=== PATIENT | female | born 2000 | race Caucasian/White ===

== ENCOUNTER 2022-07-20 10:45 | Emergency (ER) | payer OTHER, SELFPAY ==
[2022-07-20 10:56] VITALS: BP 116/74; PULSE 66; RESP 20; TEMP 36.6; O2SAT 98
--- NOTE | 2022-07-20 11:01 | ED.LOWEXIN ---
HPI - Extremity Injury (Lower) General Chief Complaint: Extremity Injury, Lower Stated Complaint: rt knee injury Time Seen by Provider: 07/20/22 11:16 Source: patient and RN notes reviewed Mode of arrival: ambulatory Limitations: no limitations History of Present Illness HPI Narrative: 21-year-old female presents concern for right knee pain. Reports she fell on Tuesday, twisting her ankle and landing on her knee. Reports she may have twisted the knee, she heard a crunching sound. Reports she has an abrasion on the knee. She reports pain at rest, worsening pain with weight-bearing and she is unable to fully flex the knee, reports it feels ?stuck?. She has been intermittently taking ibuprofen and trying to rest. MD complaint: knee injury Related Data Home Medications Medication Instructions Recorded Confirmed amoxicillin 500 mg tablet 500 mg PO DIRECTED 07/20/22 07/20/22 Allergies Allergy/AdvReac Type Severity Reaction Status Date / Time No Known Allergies Allergy Verified 07/20/22 11:11 Review of Systems Review of Systems: CONSTITUTIONAL: Denies malaise, chills, sweats, or fever. SKIN: Denies rash or itching, open skin, laceration, abrasion, redness, warmth, swelling. MUSCULOSKELETAL: Reports right knee pain, decreased range of motion NEUROLOGIC: Denies numbness, weakness All systems reviewed & are unremarkable except as noted in HPI and below PMFSH Comments At time of signature, agree with nursing past medical, surgical, social and family history. There is no relevant family history pertinent to the presenting complaint Exam Narrative: GENERAL: Well-appearing, well-nourished, and in no acute distress. HEAD: Normocephalic, atraumatic. EYES: PERRLA, conjunctivae clear NECK: Supple. CHEST: Speaks in full sentences. No respiratory distress. HEART: Regular rate and rhythm. Normal and equal peripheral pulses. EXTREMITIES: Right knee has normal strength and sensation, limited range of motion. Mild anterior edema, no ecchymosis. 5/5 strength with knee extension. Normal sensation with sensitivity to light touch and pain. No point tenderness. No no skin tenting, no devitalized tissue or atrophy, no trophic changes, no obvious deformity, alignment normal, nearby joints and structures intact. Distal pulses palpable and equal bilaterally, skin warm, dry, pink. Capillary refill less than 3 seconds. SKIN: Warm, dry, no rash. Scabbed abrasion on the anterior right knee NEURO: Alert and oriented x3. PSYCH: Normal mood and affect Course Course Emergency Course: Patient is aware of diagnosis, understands and agrees to treatment plan. Anticipatory guidance given. Patient agrees to follow-up as directed and is aware of reasons to seek care at the emergency department. Portions of this record may have been created with voice recognition software Level of Care: Express Care Visit Vital Signs Vital signs: Vital Signs Temperature 98 F 07/20/22 10:56 Pulse Rate 66 07/20/22 10:56 Respiratory Rate 20 07/20/22 10:56 Blood Pressure 116/74 07/20/22 10:56 Pulse Oximetry 98 07/20/22 10:56 Temperature 98 F 07/20/22 10:56 Pulse Rate 66 07/20/22 10:56 Respiratory Rate 20 07/20/22 10:56 Blood Pressure 116/74 07/20/22 10:56 Pulse Oximetry 98 07/20/22 10:56 Reviewed. MDM - Extremity Injury (Lower) MDM Narrative Medical decision making narrative: Patients injury and pain is consistent with musculoskeletal etiology. No signs of neurological or vascular compromise on exam. Compartments and tissues are soft without signs of compartment syndrome. Pain is felt appropriate for further evaluation on an outpatient basis. Imaging Data My impression: Images reviewed, interpreted by radiologist, agree, see report. Radiologist's impression: Right Knee Technique: AP, lateral, and sunrise views were obtained. Clinical History: Pain Findings: No fracture or dislocation is seen. Osseous alignment is
== END 2022-07-20 11:27 | disposition home or self-care (01) ==
PROVIDERS: Emergency Provider Nurse Practitioner; PCP Internal Medicine
DX: S83.91XA Sprain of unspecified site of right knee, initial encounter (principal); W19.XXXA Unspecified fall, initial encounter
CPT/HCPCS: 73562; 99213; G0463

== ENCOUNTER 2022-12-21 10:55 | Emergency (ER) | payer OTHER, SELFPAY ==
[2022-12-21 11:03] VITALS: BP 106/81; PULSE 76; RESP 16; TEMP 36.6; O2SAT 100
--- NOTE | 2022-12-21 11:09 | ED.GENADULT ---
HPI - General Adult General Chief complaint: Unspecified Stated complaint: Jaw locked Source: patient and RN notes reviewed Mode of arrival: ambulatory Limitations: no limitations History of Present Illness HPI narrative: Patient is a 22-year-old female who presents to the [facility] with right jaw pain. Patient states that the right side of her jaw has been locking all the time. It worsens when she opens her mouth wide. She reports a pulsating sensation on the right side of her jaw. States that this pain radiates to the head and down the neck. She denies trouble swallowing. Denies sore throat. Denies dental caries. Related Data Allergies Allergy/AdvReac Type Severity Reaction Status Date / Time No Known Allergies Allergy Verified 12/21/22 11:13 Review of Systems Review of Systems: CONSTITUTIONAL: Denies fever, chills, or sweats. EYES: Denies visual changes, redness, or discharge. ENT: Denies otalgia and sore throat. Reports jaw pain. CARDIOVASCULAR: Denies chest pain, palpitations, or edema. RESPIRATORY: Denies cough or dyspnea. GASTROINTESTINAL: Denies abdominal pain, nausea, vomiting, or diarrhea. GENITOURINARY: Denies dysuria or hematuria. SKIN: Denies rash or itching. MUSCULOSKELETAL: Denies back pain, joint pain, or myalgia. NEUROLOGIC: Denies headache, numbness, or weakness. Pertinent positives per HPI. PMFSH Comments At the time of my signature, I reviewed and agree with the nursing past medical, surgical, social, and family history. There is no relevant family history pertinent to the patient complaint. Exam Narrative: GENERAL: This is a well-nourished, well-developed patient, in no apparent distress. HEAD: normocephalic, atraumatic. EYES: Sclera clear/white. Vision is grossly intact. EARS: External ears normal. Hearing grossly intact. NOSE: External nose normal with no obvious nasal discharge, nares without redness, no rhinorrhea. THROAT: Mucous membranes moist, posterior pharynx clear. MOUTH: Tightness to right TMJ upon opening the mouth. NECK: Neck supple, non-tender without lymphadenopathy, masses or thyromegaly. CARDIOVASCULAR: Regular rate and rhythm without murmurs, gallops, or rubs. RESPIRATORY: Clear to auscultation. Breath sounds equal bilaterally. No wheezes, rales, or rhonchi. GASTROINTESTINAL: Abdomen soft, non-tender, nondistended. Bowel sounds are active. No hepato-splenomegaly, or palpable masses. No guarding. SKIN: warm, intact with no suspicious lesions or rash, good texture and turgor. NEURO: awake, alert, and oriented to person, place and time. There were no obvious focal neurologic abnormalities. Course Course Level of Care: Express Care Visit Vital Signs Vital signs: Vital Signs Temperature 97.9 F 12/21/22 11:03 Pulse Rate 76 12/21/22 11:03 Respiratory Rate 16 12/21/22 11:03 Blood Pressure 106/81 12/21/22 11:03 Pulse Oximetry 100 12/21/22 11:03 Temperature 97.9 F 12/21/22 11:03 Pulse Rate 76 12/21/22 11:03 Respiratory Rate 16 12/21/22 11:03 Blood Pressure 106/81 12/21/22 11:03 Pulse Oximetry 100 12/21/22 11:03 Reviewed Medical Decision Making MDM Narrative Medical decision making narrative: Advised to take medication as prescribed. Recommended follow-up with primary care physician. If pain persists, she may benefit from being referred to specialist. Differential Diagnosis Differential Diagnosis: TMJ, dental infection, dental caries, otitis media Vital Signs Vital Signs: Vital Signs Temperature 97.9 F 12/21/22 11:03 Pulse Rate 76 12/21/22 11:03 Respiratory Rate 16 12/21/22 11:03 Blood Pressure 106/81 12/21/22 11:03 Pulse Oximetry 100 12/21/22 11:03 Temperature 97.9 F 12/21/22 11:03 Pulse Rate 76 12/21/22 11:03 Respiratory Rate 16 12/21/22 11:03 Blood Pressure 106/81 12/21/22 11:03 Pulse Oximetry 100 12/21/22 11:03 Critical Care Time Critical Care Time Critical Ca
== END 2022-12-21 11:18 | disposition home or self-care (01) ==
PROVIDERS: Emergency Provider Nurse Practitioner
DX: M26.609 Unspecified temporomandibular joint disorder, unspecified side (principal)
CPT/HCPCS: 99213; G0463

== ENCOUNTER 2022-12-21 18:07 | Emergency (ER) | payer OTHER, SELFPAY ==
[2022-12-21 18:18] VITALS: BP 136/68; PULSE 153; RESP 18; TEMP 36.6; O2SAT 100
--- NOTE | 2022-12-21 18:18 | ECG_ITS ---
Measurements Intervals [place] Rate: 97 P: 76 ID: [id number] QRS: 79 QRSD: 89 T: 52 QT: 333 QTc: 424 Interpretive Statements SINUS RHYTHM WITH MARKED SINUS ARRHYTHMIA WITH SHORT ID INTERVAL NONSPECIFIC ST & T-WAVE ABNORMALITY- ANTEROLAT/INF LEADS BASELINE ARTIFACT- I, II, AVR, AVL, V3 BORDERLINE ECG NO PREVIOUS ECG AVAILABLE FOR COMPARISON Electronically Signed On 12-21-2022 19:58:06 CDT by Luis Alberto Schumacher D.O.
[2022-12-21 19:52] VITALS: BP 112/72; PULSE 82; RESP 20; O2SAT 99
[2022-12-21 22:06] VITALS: BP 116/72; PULSE 70; RESP 18; O2SAT 100
--- NOTE | 2022-12-21 22:55 | ED.GENADULT ---
HPI - General Adult General Chief complaint: Unspecified Stated complaint: jaw pain, headache Time Seen by Provider: 12/21/22 22:37 History of Present Illness HPI narrative: Patient 20-year-old female presents the emergency department with chief complaint of jaw pain. Patient reports that she has been having pain in her right jaw after her right lower wisdom tooth has been coming and patient states she was seen in urgent care and given a muscle relaxer and then started having nausea and vomiting afterwards. The patient reports she had spasms along the right side of her body that subsequently have improved patient states she was started on naproxen and cyclobenzaprine and reported that she started vomiting after she took the cyclobenzaprine. Patient states that currently she feels fine except some mild soreness in her TMJ joint. Related Data Allergies Allergy/AdvReac Type Severity Reaction Status Date / Time No Known Allergies Allergy Verified 12/21/22 22:06 Review of Systems Review of Systems: A 10 system review of systems was completed on the patient and is negative except for what is stated in the HPI. Nursing and ancillary documentation was reviewed. Exam Narrative: GENERAL: Well-appearing, well-nourished, and in no acute distress. HEAD: Normocephalic, atraumatic. EYES: PERRLA and EOMI. ENT: Nares clear, no rhinorrhea or epistaxis. Mucous membranes moist. Mild tenderness to palpation of the right TMJ joint no angioedema, no crepitance NECK: Supple. CHEST: Clear to auscultation. No respiratory distress. HEART: Regular rate and rhythm. No murmur heard. Normal peripheral pulses. ABDOMEN: Soft, nontender, nondistended, normal active bowel sounds. EXTREMITIES: Normal range of motion. No edema. SKIN: Warm, dry, no rash. NEURO: No focal deficits. Alert and oriented x3. PSYCH: Normal mood and affect. Course Vital Signs Vital signs: Vital Signs Temperature 36.6 C 12/21/22 18:18 Pulse Rate 153 H 12/21/22 18:18 Respiratory Rate 18 12/21/22 18:18 Blood Pressure 136/68 12/21/22 18:18 Pulse Oximetry 100 12/21/22 18:18 Oxygen Delivery Room Air 12/21/22 18:18 Temperature 36.6 C 12/21/22 18:18 Pulse Rate 70 12/21/22 22:06 Respiratory Rate 18 12/21/22 22:06 Blood Pressure 116/72 12/21/22 22:06 Pulse Oximetry 100 12/21/22 22:06 Oxygen Delivery Room Air 12/21/22 22:06 Medical Decision Making MDM Narrative Medical decision making narrative: Differential diagnosis includes medication intolerance, TMJ pain Given the patient had nausea and vomiting after taking the Flexeril the patient's antispasmodic will be changed to Norflex. The patient was instructed to follow-up with a dentist. Vital Signs Vital Signs: Vital Signs Temperature 36.6 C 12/21/22 18:18 Pulse Rate 153 H 12/21/22 18:18 Respiratory Rate 18 12/21/22 18:18 Blood Pressure 136/68 12/21/22 18:18 Pulse Oximetry 100 12/21/22 18:18 Oxygen Delivery Room Air 12/21/22 18:18 Temperature 36.6 C 12/21/22 18:18 Pulse Rate 70 12/21/22 22:06 Respiratory Rate 18 12/21/22 22:06 Blood Pressure 116/72 12/21/22 22:06 Pulse Oximetry 100 12/21/22 22:06 Oxygen Delivery Room Air 12/21/22 22:06 Discharge Plan Discharge Clinical Impression: TMJ (temporomandibular joint syndrome), Nausea & vomiting Patient Disposition: Home, Self-Care Condition: Stable Instructions: Antibiotic Form, Temporomandibular Disorder (ED), Acute Nausea and Vomiting (ED) Additional Instructions: Please follow-up with your dentist as soon as possible. If you develop worsening symptoms please return to the emergency department. Prescriptions: New orphenadrine citrate 100 mg tablet extended release 100 mg PO Q12H PRN (Reason: spasms) 7 Days Qty: 14 0RF No Action naproxen 500 mg tablet 500 mg PO BID PRN (Reason: pain) 14 Days Qty: 30 0RF cyclobenzaprine 10 mg tablet 1
[2022-12-21 23:24] VITALS: BP 119/71
== END 2022-12-21 23:26 | disposition home or self-care (01) ==
PROVIDERS: Emergency Provider Emergency Medicine; PCP Internal Medicine
DX: M26.601 Right temporomandibular joint disorder, unspecified (principal); R11.2 Nausea with vomiting, unspecified; R94.31 Abnormal electrocardiogram [ECG] [EKG]
CPT/HCPCS: 93005; 99283

== ENCOUNTER 2023-10-24 09:00 | Emergency (ER) | payer OTHER, SELFPAY ==
[2023-10-24 09:13] VITALS: BP 106/75; PULSE 78; RESP 16; TEMP 36.5; O2SAT 100
[2023-10-24 09:21] LABS: EDSTREPNEGPOS1 Presumptive Negative
--- NOTE | 2023-10-24 09:28 | ED.URI ---
HPI - URI/Sore Throat General Chief Complaint: Upper Respiratory Infection Stated Complaint: Strep Symptoms Time Seen by Provider: 10/24/23 09:22 Source: patient and RN notes reviewed Mode of arrival: ambulatory Limitations: no limitations History of Present Illness HPI Narrative: Patient presents today complaining of 5 day history of sore throat, bilateral ear pain, headache, nausea. She also reports fever up to 100.2. Currently rates her pain 6/10 and has been taking Tylenol with mild relief. Denies known sick contacts. Related Data Allergies Allergy/AdvReac Type Severity Reaction Status Date / Time cyclobenzaprine Allergy Vomiting Verified 10/24/23 09:07 [facility] Review of Systems Review of Systems: CONSTITUTIONAL: Denies body aches, chills, or sweats.+ fever EYES: Denies visual changes, redness, or discharge. ENT: Denies rhinorrhea, congestion. + sore throat, ear pain CARDIOVASCULAR: Denies chest pain, palpitations, or edema. RESPIRATORY: Denies cough or dyspnea. GASTROINTESTINAL: Denies abdominal pain, vomiting, or diarrhea.+ nausea GENITOURINARY: Denies dysuria or hematuria. SKIN: Denies rash, itching, or wounds. MUSCULOSKELETAL: Denies back pain, joint pain, or myalgia. NEUROLOGIC: Denies numbness, tingling, or weakness.+ headache PSYCH: Denies depression or anxiety. PMFSH Comments At time of signature, I have reviewed and agree with nursing past medical, surgical, social and family history unless otherwise noted. Please see nursing chart for further information. There is no relevant family history pertinent to the presenting complaint Exam Narrative: GENERAL: Well-appearing, well-nourished, and in no acute distress. HEAD: Normocephalic, atraumatic. EYES: EOMI. No redness or drainage. Conjunctivae normal. ENT: Mucous membranes pink and moist. Nares clear. No rhinorrhea. TMs normal bilaterally. Throat mildly erythematous. Tonsils 2 to 3+ with copious exudate. Uvula midline. NECK: Normal AROM. Supple. Bilateral anterior cervical chain lymphadenopathy CHEST: No respiratory distress. Clear to auscultation. HEART: Regular rate and rhythm. No murmur appreciated. EXTREMITIES: Normal range of motion. No edema. SKIN: Warm, dry, no rash. Capillary refill normal. Normal skin turgor. NEURO: No focal deficits. Alert and oriented x3. Gait steady. PSYCH: Normal affect. No signs of depression or anxiety. Course Course Level of Care: Express Care Visit Vital Signs Vital signs: Vital Signs Temperature 97.7 F 10/24/23 09:13 Pulse Rate 78 10/24/23 09:13 Respiratory Rate 16 10/24/23 09:13 Blood Pressure 106/75 10/24/23 09:13 Pulse Oximetry 100 10/24/23 09:13 Temperature 97.7 F 10/24/23 09:13 Pulse Rate 78 10/24/23 09:13 Respiratory Rate 16 10/24/23 09:13 Blood Pressure 106/75 10/24/23 09:13 Pulse Oximetry 100 10/24/23 09:13 Reviewed MDM - URI/Sore Throat MDM Narrative Medical decision making narrative: Rapid strep negative. Culture pending. Symptoms likely viral in etiology. Discussed [id number] medication use and duration of illness. Prescription for Zofran sent to pharmacy. Anticipatory guidance given. Differential Diagnosis Differential diagnosis: Likely upper respiratory infection, otitis media, viral infection, pharyngitis and other (Strep throat) Lab Data Attestation: I reviewed the patient's lab results. Labs: Lab Results 10/24/23 Range/Units 09:19 POC Grp A Strep Screen Presumptive negative Gp A Beta Strep Culture Yes Grp A Strep Int Pos QC Yes Critical Care Time Critical Care Time Critical Care Time: No Discharge Plan Discharge Clinical Impression: Pharyngitis Qualifiers: Pharyngitis/tonsillitis etiology: unspecified etiology Qualified Code(s): J02.9 - Acute pharyngitis, unspecified Patient Disposition: Home, Self-Care Condition: Stable Instructions: Antibiotic Form, Pharyngitis
== END 2023-10-24 09:35 | disposition home or self-care (01) ==
PROVIDERS: Emergency Provider Nurse Practitioner; PCP Internal Medicine
DX: J02.9 Acute pharyngitis, unspecified (principal)
CPT/HCPCS: 87081; 87880; 99213; G0463

== ENCOUNTER 2023-12-15 17:31 | Emergency (ER) | payer OTHER, SELFPAY ==
[2023-12-15 17:40] VITALS: BP 121/72; PULSE 98; RESP 16; TEMP 36.9; O2SAT 99
--- NOTE | 2023-12-15 17:40 | ED.URI ---
HPI - URI/Sore Throat General Chief Complaint: Upper Respiratory Infection Stated Complaint: Congestion/Cough Time Seen by Provider: 12/15/23 17:46 Source: patient, RN notes reviewed and old records reviewed Mode of arrival: ambulatory Limitations: no limitations History of Present Illness HPI Narrative: Patient presents with complaints of 4 days of runny nose, sore throat, cough, fever. She has taken 3 COVID test, all have been negative. She reports that some symptoms are seemingly better, but cough seems to be getting worse. She is able to eat and drink without difficulty. She has been taking Tylenol and ibuprofen for her symptoms with moderate relief. She cannot recall any sick contacts. She is not in any distress at Related Data Home Medications Medication Instructions Recorded Confirmed fluoxetine 20 mg tablet 20 mg PO DAILY 12/15/23 12/15/23 norgestimate 0.25 mg-ethinyl 1 tablet PO DAILY 12/15/23 12/15/23 estradiol 35 mcg tablet (Estarylla) Allergies Allergy/AdvReac Type Severity Reaction Status Date / Time cyclobenzaprine Allergy Vomiting Verified 12/15/23 17:45 [From Flexeril] latex Allergy Unknown Verified 12/15/23 17:45 Review of Systems Review of Systems: All systems reviewed & are unremarkable except as noted in HPI and below Constitutional: Constitutional: Reports as per HPI and Reports no additional constitutional complaints ENT: Reports system reviewed and no additional complaints, except as documented, Reports nasal discharge and Reports sore throat Cardiovascular: Cardiovascular: Reports no additional cardiovascular complaints Respiratory: Respiratory: Reports as per HPI, Reports no additional respiratory complaints, Reports cough and Denies dyspnea Gastrointestinal: Gastrointestinal: Reports no additional gastrointestinal complaints PMFSH Comments At the time of my signature, I reviewed and agree with the nursing past medical, surgical, social, and family history. There is no relevant family history pertinent to the patient complaint. Exam Const: General: cooperative, no acute distress, alert and awake Orientation/consciousness: oriented to person, oriented to place and oriented to time HENMT: Head: normal to inspection Ears: TM's normal bilaterally Mouth: Yes moist mucous membranes Throat: posterior oropharynx abnormal erythema Resp: Effort & Inspection: normal respiratory effort and able to speak in complete sentences Auscultation: clear to auscultation bilaterally, no crackles, no rales, no rhonchi and no wheezes Cardio: Palpation: normal PMI Rate: regular rate Rhythm: regular rhythm Heart sounds: S1 normal heart sound present and S2 normal heart sound present Neuro: General: oriented to person, oriented to place and oriented to time Cranial nerves: Yes CN's II-XII intact bilaterally Psych: Appearance: grossly normal Thought process: Normal thought process present Insight: Good insight present (Psych) Judgement: Good judgement present (Psych) Course Course Level of Care: Express Care Visit Vital Signs Vital signs: Reviewed MDM - URI/Sore Throat MDM Narrative Medical decision making narrative: negative COVID x3 at home. Negative strep here. Culture pending. Doubt the culture will come back positive. Will treat symptoms of URI. Follow-up with primary care provider. Emergency department for new or worse symptoms. Discharge instructions reviewed with patient, as well as provided in writing per nursing staff. The instructions also include specific and strict return/GO TO THE ER as well as f/u information. All questions have been answered, and the patient deny any further questions with discharge and discharge plan. Some parts of this dictation were generated by voice recognition software and may contain typographical and/or grammatical inaccuracies. Differential Diagnosis Differential diagnosis: Likely upper respiratory infection, otitis media, sinusitis,
[2023-12-15 18:02] LABS: EDSTREPNEGPOS1 Negative
== END 2023-12-15 18:10 | disposition home or self-care (01) ==
PROVIDERS: Emergency Provider Nurse Practitioner Family; PCP Internal Medicine
DX: J06.9 Acute upper respiratory infection, unspecified (principal); F41.9 Anxiety disorder, unspecified
CPT/HCPCS: 87081; 87880; 99213; G0463

== ENCOUNTER 2024-10-19 14:29 | Emergency (ER) | payer BC, SELFPAY ==
[2024-10-19 14:38] VITALS: BP 107/77; PULSE 89; RESP 16; TEMP 36.8; O2SAT 100
--- NOTE | 2024-10-19 15:21 | ED.DENTAL ---
HPI - Dental/Oral General Chief complaint: Dental/Oral Stated complaint: Locked Jaw Time Seen by Provider: 10/19/24 15:04 Source: patient and RN notes reviewed Mode of arrival: ambulatory Limitations: no limitations History of Present Illness HPI Narrative: Patient presents today complaining of broken tooth in the right lower posterior jaw after she was head butted by her dog 5 days ago. After that time she was chewing on her left side which became painful and swollen as well. Two days ago she called her dentist and was started on amoxicillin 500 mg q.i.d. and has been taking Tylenol. Patient has history of TMJ, which she attributed the left jaw swelling to. States the pain in the tooth had not improved with the amoxicillin. She started running a fever 4 days ago up to 100.2 which she had for 2 days before resolving. This morning she woke up complaining of tongue swelling, difficulty swallowing, and trismus. Related Data Home Medications ?Medication ?Instructions ?Recorded ?Confirmed ?Last Taken ?Type fluoxetine 20 mg tablet 20 mg PO DAILY 12/15/23 10/19/24 Unknown History Allergies Allergy/AdvReac Type Severity Reaction Status Date / Time cyclobenzaprine (From Allergy Vomiting Verified 10/19/24 14:43 Flexeril) latex Allergy Unknown Verified 10/19/24 14:43 PMFSH Comments At time of signature, I have reviewed and agree with nursing past medical, surgical, social and family history unless otherwise noted. Please see nursing chart for further information. There is no relevant family history pertinent to the presenting complaint Exam Narrative: GENERAL: Well-appearing, well-nourished, and in no acute distress. HEAD: Normocephalic, atraumatic. EYES: EOMI. No redness or drainage. Conjunctivae normal. ENT: Mucous membranes pink and moist. Able to speak clearly in complete sentences. No drooling or hot potato voice. + trismus. Patient is only able to open her mouth 1 finger breadth. + sublingual tenderness. Fracture of tooth number 31 with lateral 1/3 missing. Unable to assess posterior oropharynx. NECK: Normal AROM. Unilateral mild swelling of the left neck and inferior chin that is tender to palpation. CHEST: No respiratory distress. Clear to auscultation. HEART: Regular rate and rhythm. No murmur appreciated. EXTREMITIES: Normal range of motion. No edema. SKIN: Warm, dry, no rash. Capillary refill normal. Normal skin turgor. NEURO: No focal deficits. Alert and oriented x3. Gait steady. PSYCH: Normal affect. No signs of depression or anxiety. Course Course Level of Care: Express Care Visit Vital Signs Vital signs: Vital Signs Temperature 98.2 F 10/19/24 14:38 Pulse Rate 89 10/19/24 14:38 Respiratory Rate 16 10/19/24 14:38 Blood Pressure 107/77 10/19/24 14:38 Pulse Oximetry 100 10/19/24 14:38 Temperature 98.2 F 10/19/24 14:38 Pulse Rate 89 10/19/24 14:38 Respiratory Rate 16 10/19/24 14:38 Blood Pressure 107/77 10/19/24 14:38 Pulse Oximetry 100 10/19/24 14:38 Reviewed Transfer Transfered to: [facility] Transportation: Other (Private vehicle) Transfer rationale: Neck swelling, sublingual tenderness, difficulty swallowing, trismus Accepting physician: Luiz. Report given to KAMRAN Hou MDM - Dental/Oral MDM Narrative Medical decision making narrative: Patient is a 23-year-old female complaining of dental injury with no improvement with antibiotics. She complains of tongue swelling, difficulty swallowing, and trismus this morning with some left-sided neck swelling and tenderness. Exam positive for a sublingual tenderness, left lower chin and neck swelling. Voice normal, no drooling. Patient afebrile. Auscultation of lungs normal. Concern for Ck's angina. Patient will be transferred to [facility] Emergency Department for further evaluation of her symptoms. Patient agrees with plan. Differential Diagnosis Differential diagnosis: Likely dental abscess and other (Ck's angina) Critical Care Time Critical Care Time Critical Care Time: No Discharge Plan Discharge Clinical Impression: Neck swelling, Trismus Difficulty swallowing Qualifiers: Dysphagia type: unspecified Qualified Code(s): R13.10 - Dysphagia, unspecified Patient Disposition: Acute Care Hospital Condition: Serious Patient Language: Citizen Of [place] Prescriptions: No Action fluoxetine 20 mg tablet 20 mg PO DAILY Follow-up/Referrals: Prowers,Marylou Tariq MD [Primary Care Provider] - Time of Disposition: 15:21
== END 2024-10-19 15:20 | disposition short-term general hospital (02) ==
PROVIDERS: Emergency Provider Nurse Practitioner; PCP Internal Medicine
DX: R22.1 Localized swelling, mass and lump, neck (principal); R25.2 Cramp and spasm; R13.10 Dysphagia, unspecified
CPT/HCPCS: 99212; G0463